=== PATIENT | male | born 1965 | race African-American/Black ===

== ENCOUNTER 2017-03-10 09:39 | Emergency (ER) | payer OTHER ==
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
[2017-03-10 10:28] VITALS: BP 138/80; PULSE 86; TEMP 97.5; BMI 36.0
[2017-03-10] MEDS ORDERED: KETOROLAC TROMETHAMINE 15 MG/ML VIAL IM ONE (10:33)
[2017-03-10] MEDS ORDERED: diazePAM 5 MG TABLET PO ONE (10:33)
[2017-03-10] MEDS ORDERED: diazePAM 5 MG TABLET ONE (10:40)
[2017-03-10] MEDS ORDERED: KETOROLAC TROMETHAMINE 15 MG/ML VIAL ONE (10:40)
[2017-03-10 11:01] LABS: URINE APPEARANCE CLEAR; URINE BILIRUBIN NEGATIVE (NEGATIVE); URINE BLOOD NEGATIVE (NEGATIVE); URINE COLOR LTYELLOW; URINE GLUCOSE (UA) 3+ (NEGATIVE); URINE KETONE NEGATIVE (NEGATIVE); URINE LEUK ESTERASE NEGATIVE (NEGATIVE); URINE NITRITE NEGATIVE (NEGATIVE); URINE PROTEIN NEGATIVE (NEGATIVE); URINE UROBILINOGEN NEGATIVE mg/dL (0.2-1.0)
== END 2017-03-10 14:00 | disposition home or self-care (01) ==
LOC: JER 09:39
PROC: 3E0233Z Introduction of Anti-inflammatory into Muscle, Percutaneous Approach (ICD-10-PCS; principal; 2017-03-10)
DX: M25.551 Pain in right hip (principal); V78.1XXA Passenger on bus injured in noncollision transport accident in nontraffic accident, initial encounter; Y93.89 Activity, other specified; Y92.410 Unspecified street and highway as the place of occurrence of the external cause; E11.9 Type 2 diabetes mellitus without complications; I10 Essential (primary) hypertension; H40.9 Unspecified glaucoma; F03.90 Unspecified dementia, unspecified severity, without behavioral disturbance, psychotic disturbance, mood disturbance, and anxiety
CPT/HCPCS: 73502-TC-RT; 81003; 96372; 99281-25

== ENCOUNTER 2018-11-24 18:32 | Inpatient (IN) | payer OTHER ==
--- NOTE | 2018-11-24 19:04 | PDOC ---
History of Present Illness - General Chief Complaint: Back Pain Stated Complaint: BACK PAIN - History of Present Illness Initial Comments: The pt is a 53M w/ a history of T2DM, HTN, HLD, chronic back pain, s/p 'back surgery' at [facility] by Dr. Hernandez who presents for evaluation of acute on chronic back pain that radiates to his leg. The pain is described as L> R lower back pain that radiates to his anterior legs. The pain is cramping/ pulling/tearing, intermittent, exacerbated by movement, not alleviated by anything he can identify. He denies recent trauma, fevers/chills, neck tightness , chest pain, trouble breathing, numbness/tingling, weakness, or rash/swelling of his back. He states that he was counseled that he would need a subsequent procedure but that he was to attempt spinal injections first. He has yet to be able to undergo said injections. 11/24/18 19:42 Past History - Past Medical History Allergies/Adverse Reactions: Allergies Allergy/AdvReac Type Severity Reaction Status Date / Time No Known Drug Allergies Allergy Verified 11/24/18 18:43 Home Medications: Ambulatory Orders Glyburide 5 mg PO BID 10/23/15 Metformin HCl [Glucophage] 1,000 mg PO BID 10/23/15 Timolol 0.25% [Timoptic 0.25%] 1 drop OU HS 10/23/15 Amlodipine Besylate 10 mg PO DAILY 10/28/15 Aspirin [ASA -] 81 mg PO DAILY 10/28/15 Atorvastatin Ca [Lipitor] 10 mg PO HS 10/28/15 Brimonidine Tartrate [Alphagan 0.15% -] 1 drop OU BID 10/28/15 Dorzolamide/Timolol/Pf [Cosopt Pf Eye Drops] 1 each OU BID 10/28/15 Hydrochlorothiazide [Hctz -] 25 mg PO DAILY 10/28/15 Latanoprost 0.005% Eye Drops [Xalatan 0.005% Eye Drops -] 1 drop OU HS 10/28/15 Oxycodone HCl/Acetaminophen [Percocet 5-325 mg Tablet] 1 tab PO Q6H PRN #15 tablet MDD 4 tablets 03/10/17 Bisacodyl [Laxative] 5 mg PO DAILY 11/24/18 Docusate Sodium [Colace] 100 mg PO TID 11/24/18 Gabapentin [Neurontin] 600 mg PO TID PRN 11/24/18 Irbesartan [Avapro] 300 mg PO DAILY 11/24/18 Sitagliptin Phosphate [Januvia -] 100 mg PO DAILY@0700 11/24/18 Tizanidine HCl 2 mg PO Q8H PRN 11/24/18 COPD: No Dementia: Yes Diabetes: Yes HTN: Yes Hypercholesterolemia: Yes - Surgical History Orthopedic Surgery: Yes (FX RIGHT ANKLE) - Suicide/Smoking/Psychosocial Hx Smoking History: Unknown if ever smoked Have you smoked in the past 12 months: No If you are a former smoker, when did you quit?: 10YRS AGO Hx Alcohol Use: No Drug/Substance Use Hx: No Substance Use Type: None Review of Systems - Review of Systems Able to Perform ROS?: Yes Comments:: GENERAL/CONSTITUTIONAL: No fever or chills. No weakness HEAD, EYES, EARS, NOSE AND THROAT: No change in vision. No ear pain or discharge. No sore throat CARDIOVASCULAR: No chest pain or shortness of breath RESPIRATORY: Denies cough, hemoptysis GASTROINTESTINAL: No nausea, vomiting, diarrhea or constipation GENITOURINARY: No dysuria, frequency, or change in urination. MUSCULOSKELETAL: +chronic back pain SKIN: No rash NEUROLOGIC: No headache, vertigo, loss of consciousness, or change in strength/ sensation ENDOCRINE: No increased thirst. No abnormal weight change HEMATOLOGIC/LYMPHATIC: No anemia, easy bleeding, or history of blood clots ALLERGIC/IMMUNOLOGIC: No hives or skin allergy 11/24/18 19:02 Is the patient limited Cuban proficient: No *Physical Exam - Vital Signs Last Vital Signs Temp Pulse Resp BP Pulse Ox 98.2 F 104 H 36 H 139/82 100 11/24/18 18:41 11/24/18 18:41 11/24/18 18:41 11/24/18 18:41 11/24/18 18:41 - Physical Exam Comments: GENERAL: Awake, alert, and oriented to person/place/time, in no acute distress HEAD: No signs of trauma, normocephalic, atraumatic EYES: PERRLA, EOMI, sclera anicteric, conjunctiva clear ENT: Hearing grossly normal, nares patent, oropharynx clear without exudates. Moist mucosa LUNGS: No distress, speaks full sentences, clear to auscultation bilaterally HEART: Regular rate and rhythm, normal S1 and S2, no murmurs appreciated, peripheral pulses normal and equal bilaterally ABDOMEN: Soft, nontender, normoactive bowel sounds. No guarding, no rebound EXTREMITIES: 5/5 NEUROLOGICAL: SKIN: Warm, Dry 11/24/18 19:02 ED Treatment Course - LABORATORY CBC & Chemistry Diagram: 11/25/18 05:30 11/25/18 05:30 Medical Decision Making - Medical Decision Making The pt is a 53M w/ a history of HTN, chronic back pain, s/p spinal surgery several months ago who presets for evaluation of acute on chronic back/leg pain despite adhering to his pain regimen. 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
[2018-11-24] MEDS ORDERED: CYCLOBENZAPRINE HCL 5 MG TABLET PO ONE (19:23)
[2018-11-24] MEDS ORDERED: KETOROLAC TROMETHAMINE 30 MG/1 ML VIAL IVPUSH ONE (19:31)
[2018-11-24] MEDS ORDERED: CYCLOBENZAPRINE HCL 10 MG TABLET (FP) ONE (19:34)
[2018-11-24] MEDS ORDERED: CYCLOBENZAPRINE HCL 10 MG TABLET (FP) PO ONE (19:34)
[2018-11-24] MEDS ORDERED: KETOROLAC TROMETHAMINE 30 MG/1 ML VIAL ONE (19:42)
[2018-11-24] MEDS ORDERED: HYDROCHLOROTHIAZIDE 25 MG TABLET (FP) PO ONE (20:39)
[2018-11-24] MEDS ORDERED: amLODIPine BESYLATE 10 MG TABLET (FP) PO ONE (20:39)
[2018-11-24 20:41] LABS: ALBUMIN 3.1 g/dl (3.4-5.0); BILIRUBIN,TOTAL 0.4 mg/dL (0.2-1); CALCIUM 9.2 mg/dL (8.5-10.1); CREATININE 1.3 mg/dL (0.55-1.3); TOT PROT 7.3 g/dl (6.4-8.2)
--- NOTE | 2018-11-24 20:43 | PDOC ---
Documentation entered by Norma Sharpe SCRIBE, acting as scribe for Mabel Saravia MD. Mabel Saravia MD: This documentation has been prepared by the allanibe, Norma Sharpe SCRIBE, under my direction and personally reviewed by me in its entirety. I confirm that the documentation accurately reflects all work, treatment, procedures, and medical decision making performed by me. Attending Attestation - Resident Resident Name: Ky Silva - ED Attending Attestation I have performed the following: I have examined & evaluated the patient, The case was reviewed & discussed with the resident, I agree w/resident's findings & plan, Exceptions are as noted - HPI HPI: 11/24/18 20:30 The patient is a 53-year-old male with a past medical history significant for HTN, HLD, DM and chronic back pain s/p spinal surgery ([facility]) presents to the emergency department with back pain. The patient presents with 3 days of back pain, that radiates to the left leg. The patient reports the pain is unrelieved with pain medications. The patient reports one of his medication finished Monday, and hes been unable to get it refilled. The patient reports following up at [facility] recently for back pain, where he had an MRI done, which was significant for pinched nerve and surgery was recommended. The patient reports he called for an appointment, and he was suggested spinal injections as an option, which the patient refused. The patient reports he was told by a member of the doctors office that he needs to get the shot, to be considered for surgery. Denies numbness or tingling. Allergies: NKDA Surgical history: Spinal surgery PCP: Dr. aMximus Castillo. - Physicial Exam PE: 11/24/18 19:30 GENERAL: The patient is in no acute distress. ENT: Moist mucous membranes. NECK: Normal range of motion, supple, no nuchal rigidity LUNGS: Breath sounds equal, clear to auscultation bilaterally. No wheezes, and no crackles. HEART:Regular rate and rhythm, normal S1 and S2 without murmur, rub or gallop. ABDOMEN: Soft, nontender, normoactive bowel sounds. EXTREMITIES: Normal range of motion, no edema. NEUROLOGICAL: Cranial nerves II through XII grossly intact. Normal speech. Left leg: Dorsi and plantar flexion intact in left ankle EHL intact Pain with knee flexion, hip flexion (+) straight leg raise Sensation in tact in the lower extremity SKIN: Warm, Dry, normal turgor, no rashes or lesions noted. 11/24/18 20:36 - Medical Decision Making 11/24/18 20:38 53 yo M h/o HTN, HLD, DM and chronic back pain (s/p slip and fall) s/p spinal surgery ([facility]) who presents to the emergency department with three weeks of worsening back pain radiating down the left side Pt denies trauma as an inciting factor Denies IVDU Denies fevers or chills He has had multiple visits to [facility] for this pain Is s/p MRI for assessment (which reportedly demonstrates herniated disc impinging on left nerve roots) Pt has already discussed plan of action with his spinal surgeon who initially told him that he would schedule him for surgery but subsequently told him that he needed to get spinal injections and PT prior to surgery Pt is frustrated because he continues to have severe pain and is not improving 11/24/18 20:38 Will do basic labs Will give pain meds Will re assess DD: chronic back pain, sciatica, spinal stenosis, unlikely epidural abscess/ hematoma, unlikely fracture (not trauma) 11/24/18 20:53 EKG - Twelve-lead EKG was performed and reviewed by me. There is normal sinus rhythm with a normal rate. The axis is normal. The intervals are normal. There are no ST or T wave abnormalities. Impression: Normal twelve-lead EKG 11/25/18 03:15 Laboratory Tests 11/24/18 11/24/18 19:55 19:55 WBC 13.2 H Hgb 11.1 L Hct 33.6 L D Plt Count 364 D BUN 21 H Creatinine 1.3 Pt re assessed after pain medication can not ambulate Will admit 11/25/18 03:17
[2018-11-24] MEDS ORDERED: HYDROCHLOROTHIAZIDE 25 MG TABLET (FP) ONE (20:44)
[2018-11-24] MEDS ORDERED: amLODIPine BESYLATE 5 MG TABLET (FP) ONE (20:44)
[2018-11-24 20:59] LABS: BASO % 0.8 % (0-2.0); EOS % 1.1 % (0-4.5); HEMATOCRIT 33.6 % (35.4-49); HEMOGLOBIN 11.1 GM/dL (11.7-16.9); LYMPH % 17.3 % (8-40); MCH 28.4 pg (25.7-33.7); MCHC 33.2 g/dl (32.0-35.9); MEAN CELL VOLUME 85.5 fl (80-96); MONO % 7.1 % (3.8-10.2); NEUT % 73.7 % (42.8-82.8); PLATELET COUNT 364 K/MM3 (134-434); RBC 3.93 M/mm3 (4.00-5.60); RDW 13.2 % (11.9-15.9); WHITE BLOOD COUNT 13.2 K/mm3 (4.0-10.0)
[2018-11-24] MEDS ORDERED: GABAPENTIN 300 MG CAPSULE (FP) PO ONE (23:39)
[2018-11-24] MEDS ORDERED: LIDOCAINE 5% TOPICAL PATCH TP ONE (23:39)
[2018-11-24] MEDS ORDERED: LIDOCAINE 5% TOPICAL PATCH ONE (23:48)
[2018-11-24] MEDS ORDERED: GABAPENTIN 100 MG CAPSULE (FP) ONE (23:48)
--- NOTE | 2018-11-25 00:29 | HP ---
CHIEF COMPLAINT: back back PCP: Radha Piedra HISTORY OF PRESENT ILLNESS: 53-year-old man, poor historian c/o severe back pain which inhibited him from walking. He reports unspecified spinal surgery performed at [facility] on 08/24/[address] Hernandez. Now he says pain is in his "entire back" . Denied loss of bowel or bladder control. Unable to walk or sit up. Rates pain as 8/10 at this time. 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 Smoking: no Alcohol: no Drugs: former marijuana use Family History:sister with DM Allergies No Known Drug Allergies Allergy (Verified 11/24/18 18:43) HOME MEDICATIONS: Home Medications Medication Instructions Recorded Glyburide 5 mg PO BID 10/23/15 Metformin HCl [Glucophage] 1,000 mg PO BID 10/23/15 Timolol 0.25% [Timoptic 0.25%] 1 drop OU HS 10/23/15 Amlodipine Besylate 10 mg PO DAILY 10/28/15 Aspirin [ASA -] 81 mg PO DAILY 10/28/15 Atorvastatin Ca [Lipitor] 10 mg PO HS 10/28/15 Brimonidine Tartrate [Alphagan 1 drop OU BID 10/28/15 0.15% -] Dorzolamide/Timolol/Pf [Cosopt Pf 1 each OU BID 10/28/15 Eye Drops] Hydrochlorothiazide [Hctz -] 25 mg PO DAILY 10/28/15 Latanoprost 0.005% Eye Drops 1 drop OU HS 10/28/15 [Xalatan 0.005% Eye Drops -] Oxycodone HCl/Acetaminophen 1 tab PO Q6H PRN #15 tablet MDD 4 03/10/17 [Percocet 5-325 mg Tablet] tablets Bisacodyl [Laxative] 5 mg PO DAILY 11/24/18 Docusate Sodium [Colace] 100 mg PO TID 11/24/18 Gabapentin [Neurontin] 600 mg PO TID PRN 11/24/18 Irbesartan [Avapro] 300 mg PO DAILY 11/24/18 Sitagliptin Phosphate [Januvia -] 100 mg PO DAILY@0700 11/24/18 - HCl 2 mg PO Q8H PRN 11/24/18 REVIEW OF SYSTEMS CONSTITUTIONAL: Absent: fever, chills, diaphoresis, generalized weakness, malaise, loss of appetite, weight change HEENT: Absent: rhinorrhea, nasal congestion, throat pain, throat swelling, difficulty swallowing, mouth swelling, ear pain, eye pain, visual changes CARDIOVASCULAR: Absent: chest pain, syncope, palpitations, irregular heart rate, lightheadedness , peripheral edema RESPIRATORY: Absent: cough, shortness of breath, dyspnea with exertion, orthopnea, wheezing, stridor, hemoptysis GASTROINTESTINAL: Absent: abdominal pain, abdominal distension, nausea, vomiting, diarrhea, , melena, hematochezia present- constipation GENITOURINARY: Absent: dysuria, frequency, urgency, hesitancy, hematuria, flank pain, genital pain MUSCULOSKELETAL: Absent: myalgia, arthralgia, joint swelling,neck pain present- back pain, SKIN: Absent: rash, itching, pallor HEMATOLOGIC/IMMUNOLOGIC: Absent: easy bleeding, easy bruising, lymphadenopathy, frequent infections ENDOCRINE: Absent: unexplained weight gain, unexplained weight loss, heat intolerance, cold intolerance NEUROLOGIC: Absent: headache, focal weakness or paresthesias, dizziness, unsteady gait, seizure, mental status changes, bladder or bowel incontinence PSYCHIATRIC: Absent: anxiety, depression, suicidal or homicidal ideation, hallucinations. PHYSICAL EXAMINATION Vital Signs - 24 hr 11/24/18 11/24/18 11/24/18 18:41 20:50 22:19 Temperature 98.2 F 99.5 F 99.4 F Pulse Rate 104 H Pulse Rate [ 92 H 92 H Right Radial] Respiratory 36 H 20 20 Rate Blood Pressure 139/82 Blood Pressure 180/100 H 162/95 [Left Arm] O2 Sat by Pulse 100 95 95 Oximetry (%) 11/25/18 00:07 Temperature Pulse Rate Pulse Rate [ 92 H Right Radial] Respiratory 20 Rate Blood Pressure Blood Pressure 172/87 H [Left Arm] O2 Sat by Pulse 95 Oximetry (%) GENERAL: Awake, alert, and fully oriented, in no acute distress. HEAD: Normal with no signs of trauma. EYES: Pupils equal, round and reactive to light, extraocular movements intact, sclera anicteric, conjunctiva clear. No lid lag. EARS, NOSE, THROAT: Ears normal, nares patent, oropharynx clear without exudates. Moist mucous membranes. NECK: Normal range of motion, supple without lymphadenopathy, JVD, or masses. LUNGS: Breath sounds equal, clear to auscultation bilaterally. No wheezes, and no crackles. No accessory muscle use. HEART: Regular rate and rhythm, normal S1 and S2 without murmur, rub or gallop. ABDOMEN: Soft, nontender, not distended, normoactive bowel sounds, no guarding, no rebound, no masses. MUSCULOSKELETAL: Normal range of motion at all joints. No bony deformities or tenderness. No CVA tenderness. UPPER EXTREMITIES: 2+ pulses, warm, well-perfused. No cyanosis. No clubbing. No peripheral edema. LOWER EXTREMITIES: 2+ pulses, warm, well-perfused. No calf tenderness. No peripheral edema. NEUROLOGICAL: Cranial nerves II-XII intact. Normal speech. negative straight leg test b/l PSYCHIATRIC: Cooperative. Good eye contact. Appropriate mood and affect. SKIN: Warm, dry, normal turgor, no rashes or lesions noted, normal capillary refill. Laboratory Results - last 24 hr 11/24/18 11/24/18 19:55 19:55 WBC 13.2 H RBC 3.93 L Hgb 11.1 L Hct 33.6 L D MCV 85.5 MCH 28.4 MCHC 33.2 RDW 13.2 Plt Count 364 D MPV 9.0 Absolute Neuts (auto) 9.7 H Neutrophils % 73.7 Lymphocytes % 17.3 Monocytes % 7.1 Eosinophils % 1.1 Basophils % 0.8 Nucleated RBC % 0 Sodium 136 Potassium 4.0 Chloride 100 Carbon Dioxide 32 Anion Gap 4 L BUN 21 H Creatinine 1.3 Est GFR (CKD-EPI)AfAm 72.71 Est GFR (CKD-EPI)NonAf 62.73 Random Glucose 263 H Calcium 9.2 Total Bilirubin 0.4 AST 14 L ALT 20 Alkaline Phosphatase 109 Total Protein 7.3 Albumin 3.1 L lumbar spine xray reviewed ASSESSMENT/PLAN: #Back pain with sciatica to right leg, probable spondylosis, possible vertebral disk herniation. No visible hardware in lumbar spine xray. Unable to walk and severe back pain despite multiple pain medications given in ER earlier. DO not suspect cauda equina syndrome at this time. -admit to med/surg -bed rest -lumbar spine MRI -obtain medical records from [facility] -neurosurgery eval -morphine 4mg IV q4hrs prn for pain control -tizanidine 2mg IV prn -gabapentin 600mg tid po -physical therapy #HTN - uncontrolled -amlodipine, erbesartan, hctz home dose, titrate accordingly #DM - uncontrolled -novolog sliding scale -a1c -asa -lipitor #constipation -docusate -dulcolax prn #glaucoma -c/w home drop dvt ppx- heparin sc Visit type - Emergency Visit Emergency Visit: Yes ED Registration Date: 11/25/18 Care time: The patient presented to the Emergency Department on the above date and was hospitalized for further evaluation of their emergent condition. - New Patient This patient is new to me today: Yes Date on this admission: 11/25/18 - Critical Care Critical Care patient: No
[2018-11-25] MEDS ORDERED: PATIENT'S OWN MEDICATION (NON-FORMULARY) (Gabapentin [Neurontin] 600 MG) PO PRN (00:37)
[2018-11-25] MEDS ORDERED: BISACODYL 5 MG TABLET.DR (FP) PO ONE (01:25)
[2018-11-25] MEDS: SODIUM CHLORIDE 1,000 ML IV SCH ×2 (01:30→17:00)
[2018-11-25 03:45] VITALS: BMI 31.4
[2018-11-25] MEDS: morphine SULFATE 4 MG/ML VIAL IVPUSH PRN ×3 (04:15→19:52)
[2018-11-25] MEDS: ACETAMINOPHEN 325 MG TABLET (FP) PO PRN ×2 (04:17→16:53)
[2018-11-25] MEDS: LIDOCAINE PATCH REMOVAL MC SCH ×2 (06:12→22:45)
[2018-11-25] MEDS: GABAPENTIN 300 MG CAPSULE (FP) PO SCH ×3 (06:13→22:46)
[2018-11-25] MEDS: DOCUSATE SODIUM 100 MG CAPSULE (FP) PO SCH ×3 (06:13→22:44)
[2018-11-25] MEDS: INSULIN SLIDING SCALE (NOVOLOG) 1 VIAL SQ SCH ×4 (06:16→22:46)
[2018-11-25 07:00] LABS: HEMATOCRIT 32.8 % (35.4-49); HEMOGLOBIN 10.8 GM/dL (11.7-16.9); MCH 28.2 pg (25.7-33.7); MCHC 32.9 g/dl (32.0-35.9); MEAN CELL VOLUME 85.8 fl (80-96); MEAN PLT VOLUME 8.8 fl (7.5-11.1); PLATELET COUNT 344 K/MM3 (134-434); RBC 3.83 M/mm3 (4.00-5.60); RDW 13.3 % (11.9-15.9); WHITE BLOOD COUNT 12.2 K/mm3 (4.0-10.0)
[2018-11-25 07:16] LABS: CALCIUM 8.6 mg/dL (8.5-10.1); CREATININE 1.3 mg/dL (0.55-1.3); POTASSIUM 3.8 mmol/L (3.5-5.1)
[2018-11-25] MEDS: ASPIRIN 81 MG CHEWABLE TABLETS PO SCH (09:16)
[2018-11-25] MEDS: amLODIPine BESYLATE 10 MG TABLET (FP) PO SCH (09:16)
[2018-11-25] MEDS: HYDROCHLOROTHIAZIDE 25 MG TABLET (FP) PO SCH (09:16)
[2018-11-25] MEDS: LOSARTAN POTASSIUM 50 MG TABLET (FP) PO SCH (09:17)
[2018-11-25] MEDS: HEPARIN NA (PORCINE) 5,000 UNITS/ML 1ML VIAL SQ SCH ×2 (09:18→22:50)
[2018-11-25] MEDS: metFORMIN HCL 500 MG TABLET (FP) PO SCH ×2 (09:20→16:53)
[2018-11-25] MEDS: POLYETHYLENE GLYCOL 3350 119 GM BTL PO SCH ×2 (09:20→22:45)
[2018-11-25] MEDS: BRIMONIDINE TARTRATE 0.15% OPHTHALMIC 5 ML BOTTLE OU SCH ×2 (09:26→22:44)
--- NOTE | 2018-11-25 12:29 | PN ---
Progress Note (short form) - Note Progress Note: has back pain radiates to left leg Vital Signs - 24 hr 11/24/18 11/24/18 11/24/18 18:41 20:50 22:19 Temperature 98.2 F 99.5 F 99.4 F Pulse Rate 104 H Pulse Rate [ 92 H 92 H Right Radial] Respiratory 36 H 20 20 Rate Blood Pressure 139/82 Blood Pressure 180/100 H 162/95 [Left Arm] O2 Sat by Pulse 100 95 95 Oximetry (%) 11/25/18 11/25/18 11/25/18 00:07 02:14 03:14 Temperature 97.9 F 100.1 F H Pulse Rate 93 H Pulse Rate [ 92 H 88 Right Radial] Respiratory 20 20 19 Rate Blood Pressure 158/86 Blood Pressure 172/87 H 172/97 H [Left Arm] O2 Sat by Pulse 95 98 98 Oximetry (%) 11/25/18 11/25/18 11/25/18 06:00 09:00 09:26 Temperature 99.3 F 98.3 F Pulse Rate 88 87 Pulse Rate [ Right Radial] Respiratory 19 20 20 Rate Blood Pressure 158/90 143/75 Blood Pressure [Left Arm] O2 Sat by Pulse 98 98 Oximetry (%) 11/25/18 14:16 Temperature 99.6 F Pulse Rate 105 H Pulse Rate [ Right Radial] Respiratory 20 Rate Blood Pressure 147/90 Blood Pressure [Left Arm] O2 Sat by Pulse Oximetry (%) Current Medications Generic Name Dose Route Start Last Admin Trade Name Freq PRN Reason Stop Dose Admin Acetaminophen 650 mg 11/25/18 03:59 11/25/18 04:17 Tylenol - PO 650 mg Q4H PRN Administration FEVER Amlodipine Besylate 10 mg 11/25/18 10:00 11/25/18 09:16 Norvasc - PO 10 mg DAILY KELVIN Administration Aspirin 81 mg 11/25/18 10:00 11/25/18 09:16 Asa - PO 81 mg DAILY KELVIN Administration Atorvastatin Calcium 10 mg 11/25/18 22:00 Lipitor - PO HS KELVIN Brimonidine Tartrate 1 drop 11/25/18 10:00 11/25/18 09:26 Alphagan 0.15% - OU Not Given BID KELVIN Docusate Sodium 100 mg 11/25/18 06:00 11/25/18 13:25 Colace - PO 100 mg TID KELVIN Administration Gabapentin 600 mg 11/25/18 06:00 11/25/18 13:25 Neurontin - PO 600 mg TID KELVIN Administration Heparin Sodium (Porcine) 5,000 unit 11/25/18 10:00 11/25/18 09:18 Heparin - SQ 5,000 unit BID KELVIN Administration Hydrochlorothiazide 25 mg 11/25/18 10:00 11/25/18 09:16 Hctz - PO 25 mg DAILY KELVIN Administration Sodium Chloride 1,000 mls @ 75 mls/hr 11/25/18 00:45 11/25/18 01:30 Normal Saline - IV 75 mls/hr ASDIR KELVIN Administration Insulin Aspart 1 vial 11/25/18 07:00 11/25/18 11:39 Novolog Vial Sliding Scale - SQ 6 units ACHS KELVIN Administration Protocol Losartan Potassium 100 mg 11/25/18 10:00 11/25/18 09:17 Cozaar - PO 100 mg DAILY KELVIN Administration Metformin HCl 1,000 mg 11/25/18 10:00 11/25/18 09:20 Glucophage - PO 1,000 mg BIDAC KELVIN Administration Miscellaneous 1 each 11/24/18 22:00 11/25/18 06:12 Lidoderm Patch Removal MC Not Given DAILY@2200 KELVIN Morphine Sulfate 4 mg 11/25/18 00:38 11/25/18 12:43 Morphine Sulfate IVPUSH 4 mg Q4H PRN Administration PAIN LEVEL 6-10 Polyethylene Glycol 17 gm 11/25/18 10:00 11/25/18 09:20 Miralax (For Daily Use) - PO 17 grams BID KELVIN Administration Sitagliptin Phosphate 100 mg 11/26/18 07:00 Januvia - PO DAILY@0700 [facility] Timolol Maleate 1 drop 11/25/18 22:00 Timoptic 0.25% OU HS KELVIN Tizanidine HCl 2 mg 11/25/18 00:37 Tizanidine Hcl PO Q8H PRN MUSCLE SPASMS Laboratory Results - last 24 hr 11/24/18 11/24/18 11/25/18 19:55 19:55 05:30 WBC 13.2 H 12.2 H RBC 3.93 L 3.83 L Hgb 11.1 L 10.8 L Hct 33.6 L D 32.8 L MCV 85.5 85.8 MCH 28.4 28.2 MCHC 33.2 32.9 RDW 13.2 13.3 Plt Count 364 D 344 MPV 9.0 8.8 Absolute Neuts (auto) 9.7 H Neutrophils % 73.7 Lymphocytes % 17.3 Monocytes % 7.1 Eosinophils % 1.1 Basophils % 0.8 Nucleated RBC % 0 Sodium 136 Potassium 4.0 Chloride 100 Carbon Dioxide 32 Anion Gap 4 L BUN 21 H Creatinine 1.3 Est GFR (CKD-EPI)AfAm 72.71 Est GFR (CKD-EPI)NonAf 62.73 POC Glucometer Random Glucose 263 H Calcium 9.2 Total Bilirubin 0.4 AST 14 L ALT 20 Alkaline Phosphatase 109 Total Protein 7.3 Albumin 3.1 L Urine Color Urine Appearance Urine pH Ur Specific [place] Urine Protein Urine Glucose (UA) Urine Ketones Urine Blood Urine Nitrite Urine Bilirubin Urine Urobilinogen Ur Leukocyte Esterase 11/25/18 11/25/18 11/25/18 05:30 06:15 11:35 WBC RBC Hgb Hct MCV MCH MCHC RDW Plt Count MPV Absolute Neuts (auto) Neutrophils % Lymphocytes % Monocytes % Eosinophils % Basophils % Nucleated RBC % Sodium 136 Potassium 3.8 Chloride 98 Carbon Dioxide 30 Anion Gap 8 BUN 20 H Creatinine 1.3 Est GFR (CKD-EPI)AfAm 72.71 Est GFR (CKD-EPI)NonAf 62.73 POC Glucometer 379 Random Glucose 346 H* Calcium 8.6 Total Bilirubin AST ALT Alkaline Phosphatase Total Protein Albumin Urine Color Yellow Urine Appearance Clear Urine pH 5.5 Ur Specific [place] 1.029 Urine Protein Negative Urine Glucose (UA) 3+ H Urine Ketones Negative Urine Blood Negative Urine Nitrite Negative Urine Bilirubin Negative Urine Urobilinogen 1.0 Ur Leukocyte Esterase Negative 11/25/18 11:36 WBC RBC Hgb Hct MCV MCH MCHC RDW Plt Count MPV Absolute Neuts (auto) Neutrophils % Lymphocytes % Monocytes % Eosinophils % Basophils % Nucleated RBC % Sodium Potassium Chloride Carbon Dioxide Anion Gap BUN Creatinine Est GFR (CKD-EPI)AfAm Est GFR (CKD-EPI)NonAf POC Glucometer 264 Random Glucose Calcium Total Bilirubin AST ALT Alkaline Phosphatase Total Protein Albumin Urine Color Urine Appearance Urine pH Ur Specific [place] Urine Protein Urine Glucose (UA) Urine Ketones Urine Blood Urine Nitrite Urine Bilirubin Urine Urobilinogen Ur Leukocyte Esterase S1 S2 RRR Lungs clear Abd-soft, distended, NT no edema A/P c/o constipation-- was on Opioids for back pain as outpt Neurosurgery eval called Pt prefers to see his own Neurosurgeon - Dr Hernandez-- will speak with him tomorrow-- [phone]-- he was scheduled to have surgery on his back but was advised to get epidural injection first and pt refused pain control continue with med Abd xray-- no obstruction Problem List - Problems (1) Intractable low back pain Code(s): M54.5 - LOW BACK PAIN (2) Diabetes Code(s): E11.9 - TYPE 2 DIABETES MELLITUS WITHOUT COMPLICATIONS (3) Hypertension Code(s): I10 - ESSENTIAL (PRIMARY) HYPERTENSION
[2018-11-25 12:32] LABS: PH,URINE 5.5 (5.0-8.0); URINE APPEARANCE CLEAR; URINE BILIRUBIN NEGATIVE (NEGATIVE); URINE COLOR YELLOW; URINE GLUCOSE (UA) 3+ (NEGATIVE); URINE KETONE NEGATIVE (NEGATIVE); URINE LEUK ESTERASE NEGATIVE (NEGATIVE); URINE NITRITE NEGATIVE (NEGATIVE); URINE PROTEIN NEGATIVE (NEGATIVE)
--- NOTE | 2018-11-25 12:46 | EKG ---
Test Reason : Blood Pressure : / mmHG Vent. Rate : 093 BPM Atrial Rate : 093 BPM P-R Int : 142 ms QRS Dur : 084 ms QT Int : 346 ms P-R-T Axes : 031 037 -06 degrees QTc Int : 430 ms NORMAL SINUS RHYTHM NORMAL ECG NO PREVIOUS ECGS AVAILABLE Confirmed by EMERY PATTERSON MD ([id number]) on 11/25/2018 12:46:39 PM Referred By: Confirmed By:EMERY PATTERSON MD
[2018-11-25] MEDS ORDERED: IBUPROFEN 600 MG TABLET (FP) PO PRN (14:27)
[2018-11-25] MEDS ORDERED: oxyCODONE HCL 5 MG TABLET PO PRN (14:27)
[2018-11-25] MEDS ORDERED: PT OWN MED DRAWER 7, Y5N ONE (14:53)
[2018-11-25] MEDS: TIZANIDINE HCL 2 MG TABLET PO PRN (15:20)
[2018-11-25] MEDS: ATORVASTATIN CA 20 MG TABLET (FP) PO SCH (22:45)
[2018-11-25] MEDS: TIMOLOL 0.25% OPHTHALMIC SOL 5 ML BOTTLE OU SCH (22:46)
[2018-11-25] MEDS: oxyCODONE HCL 5 MG TABLET PO PRN (23:15)
--- NOTE | 2018-11-25 23:45 | CONSULT ---
Consult - text type - Consultation Consultation Note: NEUROSURGERY CONSULTATION Michael Meneses is a 53 year old male who was injured 2 years ago when he slipped on black ice. He has had low back pain and radicular pain which has increased despite conservative efforts. He underwent Right sided decompressive procedure at [facility] in August [address] Murphy with good resolution of his radicular symptoms. He has subsequently developed progression of Left lower extremity radicular symptoms. He was scheduled for a similar procedure to address this pain, however, reports being requested to undergo CARINE and Physical Therapy first. Patient is frustrated with this request and greatly desires to proceed with surgery. Patient is not clear with whether he prefers to return to Dr. Murphy or have his surgery done here and alternatively requests each possibility. He is adamant at not undergoing further imaging and describes recent MRI at [facility]. He does not have access to this exam and cannot furnish it nor request a copy. I explained that without imaging of some sort, it would be unlikely that we could offer him surgery. Patient has no fixed motor deficit and no bowel or bladder dysfunction. There is no urgent need for surgical decompression and no simple option to review recent imaging since his August surgery. I would not push him to undergo surgery or even to remain in the hospital. If he is able to help us to see his prior imaging or is willing to undergo additional imaging, we may be able to evaluate him further. At this point, Physical Therapy and CARINE would appear to be reasonable next steps in his care. All questions were answered.
[2018-11-26] MEDS: SODIUM CHLORIDE 1,000 ML IV SCH (00:45)
[2018-11-26] MEDS: DOCUSATE SODIUM 100 MG CAPSULE (FP) PO SCH ×3 (05:54→22:54)
[2018-11-26] MEDS: GABAPENTIN 300 MG CAPSULE (FP) PO SCH ×3 (05:54→22:54)
[2018-11-26] MEDS: metFORMIN HCL 500 MG TABLET (FP) PO SCH ×2 (06:03→17:28)
[2018-11-26] MEDS: sitaGLIPtin PHOSPHATE 100 MG TABLET (FP) PO SCH (06:03)
[2018-11-26] MEDS: INSULIN SLIDING SCALE (NOVOLOG) 1 VIAL SQ SCH ×4 (06:04→22:57)
[2018-11-26] MEDS ORDERED: PT OWN MED DRAWER 7, Y5N ONE ×4 (06:28→20:38)
[2018-11-26] MEDS: oxyCODONE HCL 5 MG TABLET PO PRN ×3 (08:44→19:53)
[2018-11-26] MEDS: ACETAMINOPHEN 325 MG TABLET (FP) PO PRN ×3 (08:45→19:54)
[2018-11-26] MEDS: ASPIRIN 81 MG CHEWABLE TABLETS PO SCH (09:13)
[2018-11-26] MEDS: POLYETHYLENE GLYCOL 3350 119 GM BTL PO SCH ×2 (09:13→22:56)
[2018-11-26] MEDS: HEPARIN NA (PORCINE) 5,000 UNITS/ML 1ML VIAL SQ SCH ×2 (09:13→22:55)
[2018-11-26] MEDS: amLODIPine BESYLATE 10 MG TABLET (FP) PO SCH (09:13)
[2018-11-26] MEDS: LOSARTAN POTASSIUM 50 MG TABLET (FP) PO SCH (09:13)
[2018-11-26] MEDS: HYDROCHLOROTHIAZIDE 25 MG TABLET (FP) PO SCH (09:14)
[2018-11-26] MEDS: BRIMONIDINE TARTRATE 0.15% OPHTHALMIC 5 ML BOTTLE OU SCH ×2 (09:20→22:49)
--- NOTE | 2018-11-26 14:04 | PN ---
Progress Note (short form) - Note Progress Note: Patient continues to complain of pain. Is in contact with Dr. Murphy's office and is trying to obtain copies of imaging. Will follow.
--- NOTE | 2018-11-26 14:46 | PN ---
Progress Note (short form) - Note Progress Note: has back pain radiates to left leg Vital Signs - 24 hr 11/24/18 11/24/18 11/24/18 18:41 20:50 22:19 Temperature 98.2 F 99.5 F 99.4 F Pulse Rate 104 H Pulse Rate [ 92 H 92 H Right Radial] Respiratory 36 H 20 20 Rate Blood Pressure 139/82 Blood Pressure 180/100 H 162/95 [Left Arm] O2 Sat by Pulse 100 95 95 Oximetry (%) 11/25/18 11/25/18 11/25/18 00:07 02:14 03:14 Temperature 97.9 F 100.1 F H Pulse Rate 93 H Pulse Rate [ 92 H 88 Right Radial] Respiratory 20 20 19 Rate Blood Pressure 158/86 Blood Pressure 172/87 H 172/97 H [Left Arm] O2 Sat by Pulse 95 98 98 Oximetry (%) 11/25/18 11/25/18 11/25/18 06:00 09:00 09:26 Temperature 99.3 F 98.3 F Pulse Rate 88 87 Pulse Rate [ Right Radial] Respiratory 19 20 20 Rate Blood Pressure 158/90 143/75 Blood Pressure [Left Arm] O2 Sat by Pulse 98 98 Oximetry (%) 11/25/18 14:16 Temperature 99.6 F Pulse Rate 105 H Pulse Rate [ Right Radial] Respiratory 20 Rate Blood Pressure 147/90 Blood Pressure [Left Arm] O2 Sat by Pulse Oximetry (%) Current Medications Generic Name Dose Route Start Last Admin Trade Name Freq PRN Reason Stop Dose Admin Acetaminophen 650 mg 11/25/18 03:59 11/25/18 04:17 Tylenol - PO 650 mg Q4H PRN Administration FEVER Amlodipine Besylate 10 mg 11/25/18 10:00 11/25/18 09:16 Norvasc - PO 10 mg DAILY KELVIN Administration Aspirin 81 mg 11/25/18 10:00 11/25/18 09:16 Asa - PO 81 mg DAILY KELVIN Administration Atorvastatin Calcium 10 mg 11/25/18 22:00 Lipitor - PO HS KELVIN Brimonidine Tartrate 1 drop 11/25/18 10:00 11/25/18 09:26 Alphagan 0.15% - OU Not Given BID KELVIN Docusate Sodium 100 mg 11/25/18 06:00 11/25/18 13:25 Colace - PO 100 mg TID KELVIN Administration Gabapentin 600 mg 11/25/18 06:00 11/25/18 13:25 Neurontin - PO 600 mg TID KELVIN Administration Heparin Sodium (Porcine) 5,000 unit 11/25/18 10:00 11/25/18 09:18 Heparin - SQ 5,000 unit BID KELVIN Administration Hydrochlorothiazide 25 mg 11/25/18 10:00 11/25/18 09:16 Hctz - PO 25 mg DAILY KELVIN Administration Sodium Chloride 1,000 mls @ 75 mls/hr 11/25/18 00:45 11/25/18 01:30 Normal Saline - IV 75 mls/hr ASDIR KELVIN Administration Insulin Aspart 1 vial 11/25/18 07:00 11/25/18 11:39 Novolog Vial Sliding Scale - SQ 6 units ACHS KELVIN Administration Protocol Losartan Potassium 100 mg 11/25/18 10:00 11/25/18 09:17 Cozaar - PO 100 mg DAILY KELVIN Administration Metformin HCl 1,000 mg 11/25/18 10:00 11/25/18 09:20 Glucophage - PO 1,000 mg BIDAC KELVIN Administration Miscellaneous 1 each 11/24/18 22:00 11/25/18 06:12 Lidoderm Patch Removal MC Not Given DAILY@2200 KELVIN Morphine Sulfate 4 mg 11/25/18 00:38 11/25/18 12:43 Morphine Sulfate IVPUSH 4 mg Q4H PRN Administration PAIN LEVEL 6-10 Polyethylene Glycol 17 gm 11/25/18 10:00 11/25/18 09:20 Miralax (For Daily Use) - PO 17 grams BID KELVIN Administration Sitagliptin Phosphate 100 mg 11/26/18 07:00 Januvia - PO DAILY@0700 [facility] Timolol Maleate 1 drop 11/25/18 22:00 Timoptic 0.25% OU HS KELVIN Tizanidine HCl 2 mg 11/25/18 00:37 Tizanidine Hcl PO Q8H PRN MUSCLE SPASMS Laboratory Results - last 24 hr 11/24/18 11/24/18 11/25/18 19:55 19:55 05:30 WBC 13.2 H 12.2 H RBC 3.93 L 3.83 L Hgb 11.1 L 10.8 L Hct 33.6 L D 32.8 L MCV 85.5 85.8 MCH 28.4 28.2 MCHC 33.2 32.9 RDW 13.2 13.3 Plt Count 364 D 344 MPV 9.0 8.8 Absolute Neuts (auto) 9.7 H Neutrophils % 73.7 Lymphocytes % 17.3 Monocytes % 7.1 Eosinophils % 1.1 Basophils % 0.8 Nucleated RBC % 0 Sodium 136 Potassium 4.0 Chloride 100 Carbon Dioxide 32 Anion Gap 4 L BUN 21 H Creatinine 1.3 Est GFR (CKD-EPI)AfAm 72.71 Est GFR (CKD-EPI)NonAf 62.73 POC Glucometer Random Glucose 263 H Calcium 9.2 Total Bilirubin 0.4 AST 14 L ALT 20 Alkaline Phosphatase 109 Total Protein 7.3 Albumin 3.1 L Urine Color Urine Appearance Urine pH Ur Specific [place] Urine Protein Urine Glucose (UA) Urine Ketones Urine Blood Urine Nitrite Urine Bilirubin Urine Urobilinogen Ur Leukocyte Esterase 11/25/18 11/25/18 11/25/18 05:30 06:15 11:35 WBC RBC Hgb Hct MCV MCH MCHC RDW Plt Count MPV Absolute Neuts (auto) Neutrophils % Lymphocytes % Monocytes % Eosinophils % Basophils % Nucleated RBC % Sodium 136 Potassium 3.8 Chloride 98 Carbon Dioxide 30 Anion Gap 8 BUN 20 H Creatinine 1.3 Est GFR (CKD-EPI)AfAm 72.71 Est GFR (CKD-EPI)NonAf 62.73 POC Glucometer 379 Random Glucose 346 H* Calcium 8.6 Total Bilirubin AST ALT Alkaline Phosphatase Total Protein Albumin Urine Color Yellow Urine Appearance Clear Urine pH 5.5 Ur Specific [place] 1.029 Urine Protein Negative Urine Glucose (UA) 3+ H Urine Ketones Negative Urine Blood Negative Urine Nitrite Negative Urine Bilirubin Negative Urine Urobilinogen 1.0 Ur Leukocyte Esterase Negative 11/25/18 11:36 WBC RBC Hgb Hct MCV MCH MCHC RDW Plt Count MPV Absolute Neuts (auto) Neutrophils % Lymphocytes % Monocytes % Eosinophils % Basophils % Nucleated RBC % Sodium Potassium Chloride Carbon Dioxide Anion Gap BUN Creatinine Est GFR (CKD-EPI)AfAm Est GFR (CKD-EPI)NonAf POC Glucometer 264 Random Glucose Calcium Total Bilirubin AST ALT Alkaline Phosphatase Total Protein Albumin Urine Color Urine Appearance Urine pH Ur Specific [place] Urine Protein Urine Glucose (UA) Urine Ketones Urine Blood Urine Nitrite Urine Bilirubin Urine Urobilinogen Ur Leukocyte Esterase S1 S2 RRR Lungs clear Abd-soft, distended, NT no edema A/P c/o constipation-- better -- has bm Neurosurgery eval noted spoke with Dr Hernandez today-- recommends epidural injections at this time-- does not want to proceed with surgical decompression at first . This was arranged twice for him in a week and pt refused . Pt prefers to see his own Neurosurgeon - Dr Hernandez-- pain control continue with med Abd xray-- no obstruction Problem List - Problems (1) Intractable low back pain Code(s): M54.5 - LOW BACK PAIN (2) Diabetes Code(s): E11.9 - TYPE 2 DIABETES MELLITUS WITHOUT COMPLICATIONS (3) Hypertension Code(s): I10 - ESSENTIAL (PRIMARY) HYPERTENSION
--- NOTE | 2018-11-26 15:01 | DS ---
Physical Examination Vital Signs: Vital Signs Temperature 98.9 F 11/26/18 14:10 Pulse Rate 93 H 11/26/18 14:10 Respiratory Rate 20 11/26/18 14:10 Blood Pressure 143/84 11/26/18 14:10 O2 Sat by Pulse Oximetry (%) 96 11/25/18 21:00 Labs: CBC, BMP 11/25/18 05:30 11/25/18 05:30 Discharge Summary Reason For Visit: INTRACTABLE PAIN,RADICULOPATHY,HYPERTENSION Current Active Problems Diabetes (Acute) Hypertension (Acute) Intractable low back pain (Acute) Hospital Course: Admitted for intractable back pain Was seen by Neurosurgeon here in this hospital and advised epidural injections and physical therapy Advised MRI here but pt refused Pt would prefer to see his own Neurosurgeon- DR Fran Hernandez -- who I spoke to today He says that surgery is not an option yet as pt has to undergo non surgical measures at this time- he had arranged for epidural injections twice in a week and pt refused-- he has been demanding 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 I have advised the pt to call Dr Hernandez office to schedule epidural injections as soon as he is discharged from the hospital- the office staff will arrange for it today sent only 10 tans of Oxycodone to the pharmacy-- HCS noted stable for dc home Condition: Good - Instructions Diet, Activity, Other Instructions: please call DR Hernandez as soon as you are discharged to arrange for epidural injections take Oxycodone as needed along with Tylenol 650mg Take Gabapentin three times a day along with Tizanidine Physical therapy Disposition: HOME - Home Medications Comprehensive Discharge Medication List: Ambulatory Orders Glyburide 5 mg PO BID 10/23/15 Metformin HCl [Glucophage] 1,000 mg PO BID 10/23/15 Timolol 0.25% [Timoptic 0.25%] 1 drop OU HS 10/23/15 Amlodipine Besylate 10 mg PO DAILY 10/28/15 Aspirin [ASA -] 81 mg PO DAILY 10/28/15 Atorvastatin Ca [Lipitor] 10 mg PO HS 10/28/15 Brimonidine Tartrate [Alphagan 0.15% -] 1 drop OU BID 10/28/15 Dorzolamide/Timolol/Pf [Cosopt Pf Eye Drops] 1 each OU BID 10/28/15 Hydrochlorothiazide [Hctz -] 25 mg PO DAILY 10/28/15 Latanoprost 0.005% Eye Drops [Xalatan 0.005% Eye Drops -] 1 drop OU HS 10/28/15 Bisacodyl [Laxative] 5 mg PO DAILY 11/24/18 Docusate Sodium [Colace] 100 mg PO TID 11/24/18 Gabapentin [Neurontin] 600 mg PO TID PRN 11/24/18 Irbesartan [Avapro] 300 mg PO DAILY 11/24/18 Sitagliptin Phosphate [Januvia -] 100 mg PO DAILY@0700 11/24/18 Tizanidine HCl 2 mg PO Q8H PRN 11/24/18 Lidocaine Patch Removal [Lidoderm Patch Removal] 1 each MC DAILY@2200 #30 each 11/26/18 oxyCODONE HCL [Roxicodone -] 10 mg PO Q4H PRN #10 tablet MDD 4 11/26/18
[2018-11-26] MEDS: TIZANIDINE HCL 2 MG TABLET PO PRN (18:27)
[2018-11-26] MEDS: TIMOLOL 0.25% OPHTHALMIC SOL 5 ML BOTTLE OU SCH (22:49)
[2018-11-26] MEDS: ATORVASTATIN CA 20 MG TABLET (FP) PO SCH (22:55)
[2018-11-26] MEDS: LIDOCAINE PATCH REMOVAL MC SCH (22:58)
[2018-11-27] MEDS: oxyCODONE HCL 5 MG TABLET PO PRN ×3 (02:49→13:13)
[2018-11-27] MEDS: ACETAMINOPHEN 325 MG TABLET (FP) PO PRN ×3 (02:50→13:14)
[2018-11-27] MEDS: INSULIN SLIDING SCALE (NOVOLOG) 1 VIAL SQ SCH ×2 (06:24→12:24)
[2018-11-27] MEDS: DOCUSATE SODIUM 100 MG CAPSULE (FP) PO SCH ×2 (06:25→13:15)
[2018-11-27] MEDS: metFORMIN HCL 500 MG TABLET (FP) PO SCH (06:25)
[2018-11-27] MEDS: GABAPENTIN 300 MG CAPSULE (FP) PO SCH ×2 (06:25→13:15)
[2018-11-27] MEDS: sitaGLIPtin PHOSPHATE 100 MG TABLET (FP) PO SCH (06:27)
[2018-11-27] MEDS: HYDROCHLOROTHIAZIDE 25 MG TABLET (FP) PO SCH (09:44)
[2018-11-27] MEDS: BRIMONIDINE TARTRATE 0.15% OPHTHALMIC 5 ML BOTTLE OU SCH (09:44)
[2018-11-27] MEDS: LOSARTAN POTASSIUM 50 MG TABLET (FP) PO SCH (09:44)
[2018-11-27] MEDS: POLYETHYLENE GLYCOL 3350 119 GM BTL PO SCH (09:45)
[2018-11-27] MEDS: amLODIPine BESYLATE 10 MG TABLET (FP) PO SCH (09:45)
[2018-11-27] MEDS: ASPIRIN 81 MG CHEWABLE TABLETS PO SCH (09:45)
[2018-11-27] MEDS: HEPARIN NA (PORCINE) 5,000 UNITS/ML 1ML VIAL SQ SCH (09:46)
[2018-11-27 09:50] VITALS: BP 152/80; PULSE 90; TEMP 98.8
--- NOTE | 2018-11-27 11:02 | PN ---
Progress Note (short form) - Note Progress Note: has back pain refusing physical therapy here in hospital does not to try PT he received pain medications Vital Signs - 24 hr 11/26/18 11/26/18 11/27/18 21:00 22:00 09:00 Temperature 99.5 F Pulse Rate 92 H Respiratory 19 19 18 Rate Blood Pressure 152/79 O2 Sat by Pulse 98 96 Oximetry (%) 11/27/18 09:49 Temperature 98.8 F Pulse Rate 90 Respiratory 18 Rate Blood Pressure 152/80 O2 Sat by Pulse Oximetry (%) Laboratory Results - last 24 hr 11/26/18 11/27/18 11/27/18 22:51 06:21 12:23 POC Glucometer 172 192 138 S1 S2 RRR Lungs clear Abd-soft, not distended, NT no edema A/P c/o constipation-- better -- has bm Pt prefers to see his own Neurosurgeon - Dr Hernandez--contacted him today He has advised a pain specialist- DR Beverly from their service to place epidural injections stable for dc home pt refusing wheelchair, home PT, out patient PT, VNS, home care at this time pain control continue with med Abd xray-- no obstruction Problem List - Problems (1) Intractable low back pain Code(s): M54.5 - LOW BACK PAIN (2) Diabetes Code(s): E11.9 - TYPE 2 DIABETES MELLITUS WITHOUT COMPLICATIONS (3) Hypertension Code(s): I10 - ESSENTIAL (PRIMARY) HYPERTENSION
== END 2018-11-27 13:40 | disposition home or self-care (01) | DRG 347 ==
LOC: JER 18:32 → JERBED 11-25 00:13 → J7W 11-25 03:06
PROVIDERS: ADMIT Internal Medicine; ATTEND Internal Medicine
DX: M54.5 Low back pain (principal); I10 Essential (primary) hypertension; E11.65 Type 2 diabetes mellitus with hyperglycemia; E78.5 Hyperlipidemia, unspecified; F03.90 Unspecified dementia, unspecified severity, without behavioral disturbance, psychotic disturbance, mood disturbance, and anxiety; H40.9 Unspecified glaucoma; M47.9 Spondylosis, unspecified; K59.00 Constipation, unspecified; M54.31 Sciatica, right side
CPT/HCPCS: 36415; 71045-TC-FY; 72100-TC-FY; 74018-TC-FY; 80048; 80053; 81003; 82962; 85025; 85027; 87040; 87086; 93005; 93010; 97116-GP; 97162-GP; 99284-25; J1644; J7030

== ENCOUNTER 2023-02-26 20:22 | Emergency (ER) | payer OTHER ==
[2023-02-26 20:41] VITALS: BP 190/84; PULSE 90; RESP 18; TEMP 98.5; BMI 26.6
[2023-02-26 21:24] LABS: BASO % 0.7 % (0-2.0); EOS % 2.4 % (0-4.5); HEMATOCRIT 46.2 % (35.4-49); HEMOGLOBIN 15.7 GM/dL (11.7-16.9); LYMPH % 17.9 % (8-40); MCH 29.4 pg (25.7-33.7); MEAN CELL VOLUME 86.4 fl (80-96); MEAN PLT VOLUME 8.5 fl (7.5-11.1); PLATELET COUNT 184 10^3/uL (134-434); RBC 5.35 M/mm3 (4.00-5.60); RDW 13.8 % (11.9-15.9); WHITE BLOOD COUNT 9.9 K/mm3 (4.0-10.0)
[2023-02-26 21:54] LABS: POTASSIUM 3.5 mmol/L (3.5-5.1)
[2023-02-26 21:56] LABS: BLOOD UREA NITROGEN 9.9 mg/dL (7-18)
[2023-02-26 21:59] LABS: CREATININE 1.2 mg/dL (0.55-1.3)
== END 2023-02-26 22:26 | disposition home or self-care (01) ==
LOC: JER 20:22 → JERFT 20:22
DX: R21 Rash and other nonspecific skin eruption (principal); Z77.098 Contact with and (suspected) exposure to other hazardous, chiefly nonmedicinal, chemicals
CPT/HCPCS: 36415; 80048; 85025; 99283-25

== ENCOUNTER 2023-07-31 13:19 | Emergency (ER) | payer OTHER ==
[2023-07-31 14:08] VITALS: BMI 27.4
[2023-07-31] MEDS ORDERED: ALBUTEROL SO4 2.5/IPRATROPIUM 0.5 INH SOL 3 ML VIAL.NEB. NEB ONE ×2 (20:32→21:22)
[2023-07-31] MEDS: ALBUTEROL SO4 2.5/IPRATROPIUM 0.5 INH SOL 3 ML VIAL.NEB. NEB SCH (20:35)
[2023-07-31 23:16] VITALS: BP 111/78; PULSE 79; RESP 19; TEMP 98.6
== END 2023-07-31 23:16 | disposition home or self-care (01) ==
LOC: JER 13:19
PROC: 3E0F7GC Introduction of Other Therapeutic Substance into Respiratory Tract, Via Natural or Artificial Opening (ICD-10-PCS; principal; 2023-07-31)
DX: R06.02 Shortness of breath (principal); J11.1 Influenza due to unidentified influenza virus with other respiratory manifestations; R11.2 Nausea with vomiting, unspecified; Z20.822 Contact with and (suspected) exposure to COVID-19
CPT/HCPCS: 0241U-QW; 71046-TC-FY; 93005; 93010; 94640; 99285-25

== ENCOUNTER 2024-04-25 06:18 | Emergency (ER) | payer OTHER ==
[2024-04-25 06:30] VITALS: PULSE 86; RESP 20; TEMP 98; BMI 27.4
[2024-04-25] MEDS ORDERED: TETRACAINE 0.5% OPHTH SOLN 2 ML BOTTLE ONE (08:38)
[2024-04-25] MEDS ORDERED: FLUORESCEIN NA 1 EA STRIP ONE (08:38)
[2024-04-25 08:39] VITALS: BP 205/115
[2024-04-25] MEDS: FLUORESCEIN NA 1 EA STRIP OS ONE (08:41)
[2024-04-25] MEDS: TETRACAINE 0.5% OPHTH SOLN 2 ML BOTTLE OS ONE (08:41)
== END 2024-04-25 10:05 | disposition left against medical advice (07) ==
LOC: JER 06:18
DX: S05.02XA Injury of conjunctiva and corneal abrasion without foreign body, left eye, initial encounter (principal); X58.XXXA Exposure to other specified factors, initial encounter
CPT/HCPCS: 99283-25